=== PATIENT | male | born 1955 | race Caucasian/White ===

== ENCOUNTER 2020-06-09 17:33 | Emergency (ER) | payer SELFPAY ==
[~2020-06-09] VITALS: Ht 188 cm; Wt 68.0 kg
[2020-06-09] MEDS ORDERED: IV NORMAL SALINE 1,000ML 1,000 ML IV ONE ×2 (18:00→19:15)
[2020-06-09 18:17] LABS: BASO # 0.1 x10^3/uL (0.0-0.2); BASO % 1 % (0-3); EOS # 0.1 x10^3/uL (0.0-0.7); EOS % 1 % (0-3); HEMATOCRIT 44.4 % (39.0-53.0); LYMPH # 1.4 x10^3/uL (1.0-4.8); LYMPH % 12 % (24-48); MEAN CORPUSCULAR HEMOGLOBIN 33 pg (25-35); MEAN CORPUSCULAR HGB CONC 34 g/dL (31-37); MEAN CORPUSCULAR VOLUME 98 fL (79-100); MONO % 8 % (0-9); NEUT # 9.6 x10^3uL (1.8-7.7); NEUT % 79 % (31-73); PLATELET COUNT 335 x10^3/uL (140-400); RED BLOOD COUNT 4.54 x10^6/uL (4.30-5.70); RED CELL DISTRIBUTION WIDTH 14.9 % (11.5-14.5); WHITE BLOOD COUNT 12.1 x10^3/uL (4.0-11.0)
[2020-06-09 18:34] LABS: CLARITY,URINE CLEAR; COLOR,URINE YELLOW; GLUCOSE,URINE NEG (NEG)
[2020-06-09 18:35] LABS: BILIRUBIN,URINE NEG (NEG); NITRITE,URINE NEG (NEG); UROBILINOGEN,URINE 0.2 mg/dL (0.2 mg/dL)
[2020-06-09 18:36] LABS: BACTERIA,URINE 0 /HPF (0-FEW); GRANULAR CASTS,URINE OCC /HPF; WBC,URINE 0 /HPF (0-4)
--- NOTE | 2020-06-09 18:40 | RAD ---
CT head without contrast. CT cervical spine without contrast. PQRS statement: CT scans at this facility use dose reduction including either automated exposure cont rol, iterative reconstructions, and /or weight based radiation dosing via mA and kV modification when appropriate to reduce radiation dose to as low as reasonably achievable. HISTORY: Syncope, seizure. 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 There is encephalomalacia left occipital lobe lik mable due to an chronic ischemic infarct. No acute infarct or acute ischemic change evident. No intracr anial hemorrhage, mass or hydrocephalus. Orbits, mastoids and bones are unremarkable. IMPRESSION: No acute intracranial CT abnormality. See above. CT cervical spine findings: Craniocervical junction intact. Cervical vertebral body height and alignm ent intact. There is mild motion artifact throughout the examination may decrease sensitivity to dete ct subtle abnormalities including tiny hairline fractures. Mild grade 1 anterolisthesis of C3 on C4, C5 on C6 and C7 on T1 associated with disc disease and facet arthritis at these levels. No fracture o f the cervical spine. Apical pulmonary emphysema. Cervical disc height loss and disc osteophytes and uncovertebral and facet spurring with levels of mild/moderate spinal canal stenoses and moderate to s evere neural foraminal stenoses. IMPRESSION: Mild motion degraded exam. No acute osseous injury evident. Cervical disc disease. See ab garcia. Electronically signed by: Mukesh Banks MD (06/09/2020 6:38 PM) [facility]
[2020-06-09 18:42] LABS: CALCIUM 8.6 mg/dL (8.5-10.1); CREATININE 0.7 mg/dL (0.7-1.3); GFR 113.5; POTASSIUM 4.3 mmol/L (3.5-5.1)
[2020-06-09 18:42] LABS: BARBITURATES NEG (NEG); BENZODIAZEPINES NEG (NEG); CANNABINOIDS NEG (NEG); COCAINE NEG (NEG); METHADONE NEG (NEG); OPIATES NEG (NEG); PHENCYCLIDINE NEG (NEG)
--- NOTE | 2020-06-09 18:46 | RAD ---
INDICATION: Reason: SYNCOPAL EPISODE / Spl. Instructions: / History: COMPARISON: None. FINDINGS: Single view of chest obtained. Fullness of the bilateral pulmonary hilum. Mild coarsening of the lung markings bilaterally with mild interstitial prominence. A definite grossly displaced fracture is not seen. IMPRESSION: * Fullness of the bilateral pulmonary hilum which could be from prominent pulmonary arteries or lymp hadenopathy. * Mild interstitial opacities bilaterally. No comparison is available for review to assess whether t his is the patient's baseline appearance from emphysema or if there is a superimposed mild edema or i nterstitial infiltrate. Electronically signed by: Iftikhar Brady MD (06/09/2020 6:44 PM) [id number]
[2020-06-09 18:48] LABS: ALBUMIN 4.2 g/dL (3.4-5.0); ALBUMIN/GLOBULIN RATIO 1.2 (1.0-1.7); MAGNESIUM 2.6 mg/dL (1.8-2.4); TOTAL BILIRUBIN 0.7 mg/dL (0.2-1.0); TOTAL PROTEIN 7.6 g/dL (6.4-8.2)
[2020-06-09 18:59] LABS: AMPHETAMINE/METHAMPHETAMINE NEG (NEG)
--- NOTE | 2020-06-09 19:16 | PHYS DOC ---
Adult General Chief Complaint Chief Complaint: SEIZURE HPI HPI HPI limited to patient's mental status Patient is a 65-year-old male who presents to the emergency department via EMS with reports that they were called out to a home where this patient had a seizure today with post ictal state prior to arrival. EMS safety associate reports the patient was at a home for his 's visitation when family members noticed him leaning over to the side from a sitting position and start shaking and what they called "seizure-like activity ", EMS staff did not witness any seizure activity, however report that he was in a postictal state upon their arrival. Per EMS staff, patient has no known drug allergies, does not take medications, has not seen a doctor in greater than 20 or 30 years, does not have a history of seizures, has a history of drinking daily and cigarette smoking. No other HPI obtained at this time. (FAISAL SAN APRN) Review of Systems Review of Systems 14 body systems of review of systems have been reviewed. See HPI for pertinent positives and negative responses, otherwise all other systems are negative, nonpertinent or noncontributory. (FAISAL SAN APRN) Current Medications Current Medications Current Medications Medications (Trade) Dose Ordered Sig/Guillermo Start Time Stop Time Status Last Admin Dose Admin Lorazepam (Ativan Inj) 2 mg 1X ONCE 06/09/20 18:15 06/09/20 18:38 DC Sodium Chloride 1,000 ml @ 1,000 mls/hr 1X ONCE 06/09/20 18:00 06/09/20 18:59 DC 06/09/20 18:00 1,000 MLS/HR (FAISAL SAN APRN) Allergies Allergies Allergies Coded Allergies Type Severity Reaction Last Updated Verified No Known Drug Allergies 06/09/20 No (FAISAL SAN APRN) Physical Exam Physical Exam Constitutional: Well developed, well nourished, no acute distress, non-toxic appearance. Patient speaking in full clear sentences, following all commands, however patient repeats same sentence for all questions. HENT: Normocephalic, atraumatic, bilateral external ears normal, oropharynx moist, no oral exudates, nose normal. Eyes: PERRLA, EOMI, conjunctiva normal, no discharge. Neck: Normal range of motion, no tenderness, supple, no stridor. Cardiovascular:Heart rate regular rhythm, no murmur, heart sounds S1-S2 no auscultation. Lungs & Thorax: Bilateral breath sounds clear to auscultation all lung rodgers. Abdomen: Bowel sounds normal, soft, no tenderness, no masses, no pulsatile masses. Skin: Warm, dry, no erythema, no rash. Back: No tenderness, no CVA tenderness. Extremities: No tenderness, no cyanosis, no clubbing, ROM intact, no edema. Except for left ankle swollen, no crepitus appreciated, distal cap refill less than 2 seconds, limited range of motion. 2+ dorsalis pedis pulses. Neurologic: Alert and oriented to self only, normal motor function, normal sensory function, no focal deficits noted. Psychologic: Judgment abnormal (FAISAL SAN APRN) Current Patient Data Lab Results Laboratory Tests Test 06/09/20 17:50 06/09/20 17:55 Urine Collection Type Unknown Urine Color Yellow Urine Clarity Clear Urine pH 6.0 Urine Specific [place] 1.015 Urine Protein Trace (NEG-TRACE) Urine Glucose (UA) Neg mg/dL (NEG) Urine Ketones (Stick) Trace mg/dL (NEG) Urine Blood Small (NEG) Urine Nitrite Neg (NEG) Urine Bilirubin Neg (NEG) Urine Urobilinogen Dipstick 0.2 mg/dL (0.2 mg/dL) Urine Leukocyte Esterase Neg (NEG) Urine RBC 3-5 /HPF (0-2) Urine WBC 0 /HPF (0-4) Urine Squamous Epithelial Cells None /LPF Urine Bacteria 0 /HPF (0-FEW) Urine Granular Casts Occ /HPF Urine Opiates Screen Neg (NEG) Urine Methadone Screen Neg (NEG) Urine Barbiturates Neg (NEG) Urine Phencyclidine Screen Neg (NEG) Urine Amphetamine/Methamphetamine Neg (NEG) Urine Benzodiazepines Screen Neg (NEG) Urine Cocaine Screen Neg (NEG) Urine Cannabinoids Screen Neg (NEG) Urine Ethyl Alcohol Pos (NEG) White Blood Count 12.1 x10^3/uL (4.0-11.0) H Red Blood Count 4.54 x10^6/uL (4.30-5.70) Hemoglobin 15.0 g/dL (13.0-17.5) Hematocrit 44.4 % (39.0-53.0) Mean Corpuscular Volume 98 fL (79-100) Mean Corpuscular Hemoglobin 33 pg (25-35) Mean Corpuscular Hemoglobin Concent 34 g/dL (31-37) Red Cell Distribution Width 14.9 % (11.5-14.5) H Platelet Count 335 x10^3/uL (140-400) Neutrophils (%) (Auto) 79 % (31-73) H Lymphocytes (%) (Auto) 12 % (24-48) L Monocytes (%) (Auto) 8 % (0-9) Eosinophils (%) (Auto) 1 % (0-3) Basophils (%) (Auto) 1 % (0-3) Neutrophils # (Auto) 9.6 x10^3uL (1.8-7.7) H Lymphocytes # (Auto) 1.4 x10^3/uL (1.0-4.8) Monocytes # (Auto) 1.0 x10^3/uL (0.0-1.1) Eosinophils # (Auto) 0.1 x10^3/uL (0.0-0.7) Basophils # (Auto) 0.1 x10^3/uL (0.0-0.2) Sodium Level 122 mmol/L (136-145) L Potassium Level 4.3 mmol/L (3.5-5.1) Chloride Level 84 mmol/L (98-107) L Carbon Dioxide Level 14 mmol/L (21-32) L Anion Gap 24 (6-14) H Blood Urea Nitrogen 6 mg/dL (8-26) L Creatinine 0.7 mg/dL (0.7-1.3) Estimated GFR (Cockcroft-Gault) 113.5 BUN/Creatinine Ratio 9 (6-20) Glucose Level 95 mg/dL (70-99) Calcium Level 8.6 mg/dL (8.5-10.1) Magnesium Level 2.6 mg/dL (1.8-2.4) H Total Bilirubin 0.7 mg/dL (0.2-1.0) Aspartate Amino Transferase (AST) 54 U/L (15-37) H Alanine Aminotransferase (ALT) 61 U/L (16-63) Alkaline Phosphatase 79 U/L (46-116) Creatine Kinase 256 U/L (39-308) Creatine Kinase MB (Mass) 9.0 ng/mL (0.0-3.6) H Creatine Kinase MB Relative Index 3.5 % (0-4) Troponin I Quantitative < 0.017 ng/mL (0-0.055) Total Protein 7.6 g/dL (6.4-8.2) Albumin 4.2 g/dL (3.4-5.0) Albumin/Globulin Ratio 1.2 (1.0-1.7) Ethyl Alcohol Level 50 mg/dL (0-10) H (FAISAL SAN APRN) EKG EKG EKG performed at 1807 by house respiratory therapy staff shows a heart rate of 101 bpm MT interval 0.150, QTc interval 0.426, sinus rhythm tachycardic without ectopy, no acute STEMI, no ACS, no acute ischemia appreciated, EKG interpreted by ED attending physician Dr. De La Torre. (FAISAL SAN APRN) Radiology/Procedures Radiology/Procedures [] (FAISAL SAN APRN) Heart Score HEART Score for Chest Pain: HEART Score for Chest Pain Response (Comments) Value History Slighlty/Non-Suspicious 0 ECG Normal 0 Age >45 - < 65 1 Risk Factors 1 or 2 Risk Factors 1 Troponin < Normal Limit 0 Total 2 Risk Factors: Risk Factors: DM, Current or recent (<one month) smoker, HTN, HLP, family history of CAD, obesity. Risk Scores: Risk Factors: DM, Current or recent (<one month) smoker, HTN, HLP, family history of CAD, obesity. (FAISAL SAN APRN) Course & Med Decision Making Course & Med Decision Making Pertinent Labs and Imaging studies reviewed. (See chart for details) 65-year-old male, vital signs reviewed, concerning for new onset seizure. During patient's physical examination patient had approximately 1 minute grand mal seizure. Patient was given [address] head and C-spine, CT chest, EKG, serum labs, urinalysis assay with urine drug screen, x-ray of left ankle ordered. Unable to obtain adequate health history, patient's brother at bedside stating he knows that the patient drinks every day, smokes cigarettes, and has not seen a doctor and almost 30 years or longer. Suspect new onset seizure versus alcoholic related seizure versus infectious process Versus neurologic process. Patient serum lab work concerning for hyponatremia with a sodium of 122, patient acidotic with a CO2 of 14 and an anion gap of 24. Patient's alcohol level equals 50. CT head did not show acute CVA process, one-view portable chest noted infil trates, left ankle x-ray shows abnormality most likely old injury. Upon reexamination of patient, patient remains unresponsive to painful stimuli which is not changed since his witness seizure here in the ED, patient has satisfactory deep tendon reflexes, pupils equal bilaterally at 4 mm and responsive to light stimuli, positive gag reflex. Called and discussed case with inpatient HIMS inpatient Dr. Go who agreed to accept the patient in transfer to the ICU at [facility] with the diagnosis of new onset seizure, hyponatremia, acidosis, abnormal left ankle x- ray, Dr. Go recommended a lactic acid level be drawn, a ABG is pending at this time awaiting respiratory therapy staff to draw and run, also recommended consult neurology specialist, start patient on 1 g IV Keppra. Discussed patient case with neurology specialist Dr. Hubbard who states he agrees with IV Keppra loading dose of 1 g, will see at [facility]. Received ABG, pH 7.207, HCO3 equal to 13.2, reviewed with ED attending physician Dr. De La Torre who recommended giving 1 amp sodium bicarb prior to patient's transfer to [facility] ICU. Reviewed chest x-ray results with Dr. Go who recommended patient be started on 3.375 g Zosyn IV. Patient is EMTALA transfer forms completed, nursing report given to ICU, awaiting EMS to transport to [place] ICU. Upon reexamination of the patient, patient is stable for transfer at this time. (FAISAL SAN APRN) Dragon Disclaimer Dragon Disclaimer This electronic medical record was generated, in whole or in part, using a voice recognition dictation system. (FAISAL SAN APRN) Departure Departure: Impression: Primary Impression: New onset seizure Additional Impressions: Acidosis Hyponatremia Abnormal x-ray of lower extremity Elevated lactic acid level Disposition: 02 DC/TRF OTHER SHORT TERM HOS Admitting Physician: Lisa Go (Admit to ICU at [facility]) (FAISAL SAN APRN) Condition: GUARDED Referrals: PCP,NO (PCP) Attending Signature Attending Signature I have participated in the care of this patient and I have reviewed and agree with all pertinent clinical information above including history, exam, and recommendations. (FERNANDO DE LA TORRE MD) Problem Qualifiers FAISAL SAN APRN Jun 09, 2020 19:16 FERNANDO DE LA TORRE MD Jun 10, 2020 06:15
--- NOTE | 2020-06-09 19:26 | RAD ---
INDICATION: Reason: SWELLING/DEFORMITY / Spl. Instructions: / History: COMPARISON: None. IMPRESSION: Left ankle: 3 views obtained. Large amount of soft tissue swelling is seen. There is a deformity of t he tibiotalar joint with talar tilt identified as well as irregularity of the articular surface of th e distal tibia and talus. Degenerative changes are seen. Widening of the medial ankle mortise as well as the medial aspect of the tibiotalar joint which could be from ligamentous injury and subluxation. There is no comparison available for review to assess whether this is a chronic finding or acute in nature from acute injury. Osseous demineralization. Tibiotalar joint effusion. Degenerative changes o f the midfoot. Degenerative changes with erosions at the subtalar joint as well. Electronically signed by: Iftikhar Brady MD (06/09/2020 7:24 PM) [id number]
[2020-06-09] MEDS ORDERED: SODIUM BICARB ADULT 8.4% 50 MEQ/50 ML DISP.SYRIN. IV ONE (20:30)
[2020-06-09 20:40] LABS: BGAS PH 7.21 (7.35-7.46)
[2020-06-09] MEDS ORDERED: IV NORMAL SALINE 50ML 50 ML ONE (21:13)
[2020-06-09] MEDS ORDERED: PIPERACILLIN/TAZOBACTAM 3.375 GM VIAL IV ONE (21:14)
[2020-06-09] MEDS ORDERED: PIPERACILLIN/TAZOBACTAM 3.375 GM in IV NORMAL SALINE 50ML 50 ML IV ONE (21:30)
[2020-06-09 21:35] VITALS: BP 112/56
--- NOTE | 2020-06-09 22:48 | EKG ---
[facility] ED [facility] [address] [place] [id number] Test Date: 2020-06-09 Test Time: 18:07:26 Pat Name: ADITHYA HAN Department: Room: Gender: M [employer]er: : [id number] Requested By: FAISAL SAN Order Number: [id number] Reading MD: Measurements Intervals United Rate: 101 P: -69 MO: 150 QRS: 72 QRSD: 102 T: 65 QT: 328 QTc: 426 Interpretive Statements SINUS TACHYCARDIA S1,S2,S3 PATTERN INCOMPLETE RIGHT BUNDLE BRANCH BLOCK CONSIDER RIGHT VENTRICULAR HYPERTROPHY POSSIBLY ABNORMAL ECG RI6.02 No previous ECG available for comparison
== END 2020-06-09 23:13 | disposition short-term general hospital (02) ==
LOC: ER 17:33
DX: R56.9 Unspecified convulsions (principal); E87.2 Acidosis; R79.89 Other specified abnormal findings of blood chemistry; E87.1 Hypo-osmolality and hyponatremia; R93.89 Abnormal findings on diagnostic imaging of other specified body structures; F17.210 Nicotine dependence, cigarettes, uncomplicated
CPT/HCPCS: 36415; 36600; 70450; 71045; 72125; 73610; 80053; 80307; 81001; 82553; 82803; 83605; 83735; 84484; 85025; 93005; 96361; 96365; 96367; 96375; 99285; G0480; J1953; J2543; J7030

== ENCOUNTER 2021-04-16 19:28 | Emergency (ER) | payer MEDICARE ==
[~2021-04-16] VITALS: Ht 188 cm; Wt 68.0 kg
[2021-04-16] MEDS ORDERED: NITROFURANTOIN MONOHYD/M-CRYST 100 MG CAPSULE. PO ONE (20:30)
[2021-04-16] MEDS ORDERED: DEXAMETHASONE SOD PHOS 10 MG/ML VIAL. PO ONE (20:45)
[2021-04-16] MEDS ORDERED: IPRATRPIUM/ALBUTEROL 0.5/2.5MG 3 ML NEBU. NEB ONE (20:45)
--- NOTE | 2021-04-16 20:46 | PHYS DOC ---
Past History Past Medical History: No Pertinent History (CHRIS MONTOYA APRN) Past Surgical History: No Surgical History (CHRIS MONTOYA APRN) Smoking: Less than 1pk/day Alcohol Use: None Drug Use: None (CHRIS MONTOYA APRN) General Adult EDM: Chief Complaint: SHORTNESS OF BREATH HPI: HPI: Patient is a 66-year-old male that presents today with difficulty breathing. Patient states he has not seen a physician in almost 40 years, he states that over the the last couple of days since it got really cold he has had increased difficulty breathing. Patient states that he has smoked for over 40 years and has decreased his smoking down to 3 to 4 cigarettes daily but continues to smoke, since he has not been to a physician almost 40 years he has no past medical history to speak of. He states in 1982 he did have pneumonia and was treated at that time. Patient does state he has a cough but he is bringing up minimal to scant amount of mucus and he describes the mucus is clear. He denies fever and chills or chest pain. (CHRIS MONTOYA APRN) Review of Systems: Review of Systems: Constitutional: Denies fever or chills Eyes: Denies change in visual acuity HENT: Denies nasal congestion or sore throat Respiratory: cough or shortness of breath Cardiovascular: Denies chest pain or edema GI: Denies abdominal pain, nausea, vomiting, bloody stools or diarrhea : Denies dysuria Musculoskeletal: Denies back pain or joint pain Integument: Denies rash Neurologic: Denies headache, focal weakness or sensory changes Endocrine: Denies polyuria or polydipsia Lymphatic: Denies swollen glands Psychiatric: Denies depression or anxiety (CHRIS MONTOYA APRN) Current Medications: Current Meds: Current Medications Medications (Trade) Dose Ordered Sig/Guillermo Start Time Stop Time Status Last Admin Dose Admin Albuterol/ Ipratropium (Duoneb) 3 ml 1X ONCE 04/16/21 20:45 04/16/21 20:46 UNV Dexamethasone Sodium Phosphate (Decadron) 10 mg 1X ONCE 04/16/21 20:45 04/16/21 20:46 UNV Nitrofurantoin Macrocrystals (Macrobid) 100 mg 1X ONCE 04/16/21 20:30 04/16/21 20:31 UNV (CHRIS MONTOYA APRN) Allergies: Allergies: Allergies Coded Allergies Type Severity Reaction Last Updated Verified No Known Drug Allergies 06/09/20 No (CHRIS MONTOYA APRN) Physical Exam: PE: Constitutional: Well developed, well nourished, mild distress, non-toxic appearance. [] HENT: Normocephalic, atraumatic, bilateral external ears normal, oropharynx moist, no oral exudates, nose normal. [] Eyes: PERRLA, EOMI, conjunctiva normal, no discharge. [] Neck: Normal range of motion, no tenderness, supple, no stridor. [] Cardiovascular:Heart rate regular rhythm, no murmur [] Lungs & Thorax: Bilateral breath sounds diminished Abdomen: Bowel sounds normal, soft, no tenderness, no masses, no pulsatile masses. [] Skin: Warm, dry, no erythema, no rash. [] Back: No tenderness, no CVA tenderness. [] Extremities: No tenderness, no cyanosis, no clubbing, ROM intact, no edema. [] Neurologic: Alert and oriented X 3, normal motor function, normal sensory function, no focal deficits noted. [] Psychologic: Affect normal, judgement normal, mood normal. [] (CHRIS MONTOYA APRN) Current Patient Data: Labs: Laboratory Tests Test 04/16/21 20:55 Influenza Type A (Rapid) Negative Influenza Type B (Rapid) Negative Current Medications Medications (Trade) Dose Ordered Sig/Guillermo Route PRN Reason Start Time Stop Time Status Last Admin Dose Admin Nitrofurantoin Macrocrystals (Macrobid) 100 mg 1X ONCE PO 04/16/21 20:30 04/16/21 20:31 UNV Dexamethasone Sodium Phosphate (Decadron) 10 mg 1X ONCE PO 04/16/21 20:45 04/16/21 20:52 DC 04/16/21 20:58 Albuterol/ Ipratropium (Duoneb) 3 ml 1X ONCE NEB 04/16/21 20:45 04/16/21 20:52 DC 04/16/21 20:52 Vital Signs: Vital Signs Date Time Temp Pulse Resp B/P (MAP) Pulse Ox O2 Delivery O2 Flow Rate FiO2 04/16/21 20:53 95 Room Air 04/16/21 20:15 97.7 85 24 188/89 (122) 94 Room Air (CHRIS MONTOYA APRN) EKG: EKG: [] (CHRIS MONTOYA APRN) Radiology/Procedures: Radiology/Procedures: REASON: Short of air, cough, congestion PROCEDURE: CHEST AP ONLY XR CHEST 1V History: Reason: Short of air, cough, congestion / Spl. Instructions: / History: Comparison: June 09, 2020 Findings: Hyperinflation. No consolidation or pleural effusion. No pneumothorax. Normal heart size. Impression: 1. Hyperinflation. No new consolidation. Electronically signed by: Stanford Gonzales DO (04/16/2021 9:03 PM) [facility] (CHRIS MONTOYA APRN) Heart Score: C/O Chest Pain: N/A Risk Factors: Risk Factors: DM, Current or recent (<one month) smoker, HTN, HLP, family history of CAD, obesity. Risk Scores: Score 0 - 3: 2.5% MACE over next 6 weeks - Discharge Home Score 4 - 6: 20.3% MACE over next 6 weeks - Admit for Clinical Observation Score 7 - 10: 72.7% MACE over next 6 weeks - Early Invasive Strategies (CHRIS MONTOYA APRN) Course & Med Decision Making: Course & Med Decision Making Pertinent Labs and Imaging studies reviewed. (See chart for details) 9488 oxygen saturation 96% reassessment patient states he feels much better he is moving air much better and feels like he is not short of breath. Will discharge patient home to follow-up with his primary care physician next week. We will send him home with an albuterol inhaler 2 puffs every 6 hours as needed also and send him home with some prednisone for the next 5 days. Patient is agreeable with the plan of care and will follow up with his primary care next week. (CHRIS MONTOYA APRN) Dragon Disclaimer: Dragon Disclaimer: This electronic medical record was generated, in whole or in part, using a voice recognition dictation system. (CHRIS MONTOYA APRN) Attending Co-Sign The patient was seen and interviewed as well as examined at the bedside. The chart was reviewed. The case was discussed. Agree with the plan of care. (AUDI ABBOTT DO) Departure Departure: Impression: Primary Impression: Shortness of breath Additional Impression: Smoking history Disposition: HOME / SELF CARE / HOMELESS Condition: STABLE Referrals: PCP,KRISTA (PCP) [facility] Patient Instructions: Shortness of Breath, Smoking Cessation, Smoking, You Can Quit, Pdry-od-Fsiu Additional Instructions: Albuterol inhaler 2 puffs every 6 hours as needed for shortness of air Prednisone take as directed daily for the next 5 days Follow-up with your primary care physician by phone tomorrow for an appointment at her earliest convenience. Return to the emergency department for increased shortness of air, bluing of your lips, or any other concerns with your breathing you may have. Scripts Prednisone (PREDNISONE) 20 Mg Tablet 3 TAB PO DAILY for allergies for 5 Days, #15 TAB Prov: CHRIS MONTOYA CARROT BUNCHER 04/16/21 Albuterol Sulfate (PROAIR HFA INHALER) 8.5 Gm Hfa.aer.ad 2 PUFF IH PRN Q4-6HRS PRN for wheezing, #1 INHALER 0 Refills Prov: CHRIS MONTOYA CARROT BUNCHER 04/16/21 CHRIS MONTOYA CARROT BUNCHER Apr 16, 2021 20:46 AUDI ABBOTT DO Apr 18, 2021 14:11
--- NOTE | 2021-04-16 21:05 | RAD ---
XR CHEST 1V History: Reason: Short of air, cough, congestion / Spl. Instructions: / History: Comparison: June 09, 2020 Findings: Hyperinflation. No consolidation or pleural effusion. No pneumothorax. Normal heart size. Impression: 1. Hyperinflation. No new consolidation. Electronically signed by: Stanford Gonzales DO (04/16/2021 9:03 PM) [facility]
[2021-04-16 21:49] LABS: INFLUENZA A PATIENT NEGATIVE (NEGATIVE); INFLUENZA B PATIENT NEGATIVE (NEGATIVE)
[2021-04-16] MEDS ORDERED: PRED20TA PO (22:24)
[2021-04-16] MEDS ORDERED: ALBU2.5V8 IH (22:24)
[2021-04-16 22:39] VITALS: BP 130/54
== END 2021-04-16 22:45 | disposition home or self-care (01) ==
LOC: ER 19:28
DX: R06.02 Shortness of breath (principal); R05.9 Cough, unspecified; R09.3 Abnormal sputum; F17.200 Nicotine dependence, unspecified, uncomplicated; Z20.822 Contact with and (suspected) exposure to COVID-19
CPT/HCPCS: 71045; 87804; 94640; 99283; C9803; J1100; U0003